=== PATIENT | female | born 1980 | race Caucasian/White ===

== ENCOUNTER → 2016-12-12 | Outpatient (CLI) | payer OTHER ==
--- NOTE | 2016-12-12 20:56 | REP ---
Clinical: Plantar fasciitis Technique: AP, lateral, bilateral oblique views left foot . Findings: The osseous structures and joint spaces are intact and normal. There is no evidence for acute fracture or dislocation. Surrounding soft tissues are unremarkable. No subcutaneous emphysema or radiodense foreign body. Specifically, the plantar soft tissues appear normal. Impression: Normal left foot radiographs . No acute fracture or dislocation. Signed by Anton Pascal MD 12/12/2016 08:48 P
== END ==
LOC: M LRY 10:52
PROVIDERS: ATTEND Family Medicine
DX: M72.2 Plantar fascial fibromatosis (principal)
CPT/HCPCS: 73630; G0463

== ENCOUNTER → 2018-09-07 | Outpatient (REF) | payer OTHER | LOC: M SFHCLERA 17:41 | PROVIDERS: ATTEND Physician Assistant | DX: N39.0 Urinary tract infection, site not specified (principal) ==

== ENCOUNTER → 2019-02-11 | Outpatient (REF) | payer OTHER ==
[2019-02-11 20:30] LABS: BLOOD UREA NITROGEN 9 MG/DL (7-18); CALCIUM LEVEL 9.6 MG/DL (8.5-10.1); CARBON DIOXIDE LEVEL 28 MEQ/L (21-32); CHLORIDE LEVEL 107 MEQ/L (98-107); CREATININE FOR GFR 0.68 MG/DL (0.55-1.30); GLOMERULAR FILTRATION RATE > 60.0 (>60); GLUCOSE, FASTING 86 MG/DL (70-100); POTASSIUM SERUM 4.1 MEQ/L (3.5-5.1); SODIUM LEVEL 140 MEQ/L (136-145)
[2019-02-11 20:40] LABS: CHOLESTEROL RISK RATIO 2.452 (<5); THYROID STIMULATING HORMONE 1.33 uIU/ML (0.358-3.740)
[2019-02-11 20:52] LABS: HEMOGLOBIN A1c 5.4 %
== END ==
LOC: M SFHCLERA 15:18
PROVIDERS: ATTEND Family Medicine
DX: E66.9 Obesity, unspecified (principal)
CPT/HCPCS: 80048; 80061; 83036; 84443; 90471; 90682; G0463

== ENCOUNTER 2019-07-15 00:55 | Emergency (ER) | payer OTHER ==
[~2019-07-15] VITALS: Ht 177.8 cm; Wt 103.4 kg
[2019-07-15] MEDS ORDERED: SERT-138 PO (01:30)
[2019-07-15] MEDS ORDERED: GIAN1TAB PO (01:30)
[2019-07-15] MEDS ORDERED: ACETAMINOPHEN 325 MG TAB PO ONE (01:45)
[2019-07-15 01:59] LABS: HEMATOCRIT 39.4 % (36.0-47.0); HEMOGLOBIN 13.6 g/dl (12.0-15.5); MEAN CORPUSCULAR HGB CONC 34.5 g/dl (32.0-36.5); MEAN CORPUSCULAR VOLUME 86.8 fl (80.0-96.0); PLATELET COUNT, AUTOMATED 135 10^3/uL (150-450); RED BLOOD COUNT 4.54 10^6/uL (4.00-5.40); WHITE BLOOD COUNT 6.3 10^3/uL (4.0-10.0)
[2019-07-15] MEDS ORDERED: FISH1000 PO (02:01)
[2019-07-15 02:23] LABS: ATYPICAL LYMPH 7 % (0-5); BASOPHILS 1 % (0-1); EOSINOPHILS 1 % (0-3); LYMPHOCYTES 22 % (16-44); MONOCYTES 3 % (0-5); NEUTROPHILS 65 % (28-66); PLATELET CLUMPS SMALL AMT; PLATELET ESTIMATE NORMAL (NORMAL)
[2019-07-15 02:25] LABS: ERYTHROCYTE SEDIMENTATION RATE 8 mm/hr (0-20)
[2019-07-15 02:28] LABS: ALBUMIN 3.4 GM/DL (3.2-5.2); ALT/SGPT 42 U/L (12-78); BILIRUBIN,DIRECT 0.2 MG/DL (0.0-0.2); BILIRUBIN,TOTAL 0.3 MG/DL (0.2-1.0); BLOOD UREA NITROGEN 8 MG/DL (7-18); C REACTIVE PROTEIN QUANTITATIV 1.54 MG/DL (0.00-0.30); CALCIUM LEVEL 8.3 MG/DL (8.5-10.1); CARBON DIOXIDE LEVEL 24 mmol/L (20-29); CHLORIDE LEVEL 110 MEQ/L (98-107); GLOMERULAR FILTRATION RATE > 60.0 (>60); GLUCOSE, FASTING 109 MG/DL (70-100); POTASSIUM SERUM 3.4 MEQ/L (3.5-5.1); SODIUM LEVEL 140 MEQ/L (136-145); TOTAL PROTEIN 6.6 GM/DL (6.4-8.2)
[2019-07-15 02:42] LABS: MONO SCRN NEGATIVE (NEGATIVE)
[2019-07-15 04:45] VITALS: BP 132/78
[2019-07-15] MEDS ORDERED: IBUP-1022 PO (04:48)
[2019-07-16 11:44] LABS: HEPATITIS A ANTIBODY IGM NEGATIVE (NEGATIVE); HEPATITIS B CORE ANTIBODY IGM NEGATIVE (NEGATIVE); HEPATITIS B SURFACE ANTIGEN NEGATIVE (NEGATIVE); HEPATITIS C VIRUS ABY INDEX 0.1 INDEX (<0.8)
== END 2019-07-15 05:01 | disposition home or self-care (01) ==
LOC: M ED 00:55
DX: M13.80 Other specified arthritis, unspecified site (principal); F41.1 Generalized anxiety disorder; Z79.899 Other long term (current) drug therapy

== ENCOUNTER → 2020-12-14 | Outpatient (REF) | payer OTHER ==
[~2020-12-14] MED LIST: FISH1000 PO; GIAN1TAB PO; IBUP-1022 PO; SERT-138 PO
== END ==
LOC: M SFHCLERA 18:30
PROVIDERS: ATTEND Nurse Practitioner Family
DX: J40 Bronchitis, not specified as acute or chronic (principal)
CPT/HCPCS: 87798; G0463

== ENCOUNTER → 2021-02-10 | Outpatient (REF) | payer OTHER | LOC: M LAB REF 20:10 | PROVIDERS: ATTEND Physician Assistant | DX: R05.9 Cough, unspecified (principal) ==

== ENCOUNTER → 2022-06-28 | Outpatient (CLI) | payer OTHER ==
[2022-06-28 11:31] LABS: HEPATITIS B SURFACE ANTIGEN NEGATIVE (NEGATIVE)
[2022-06-28 11:43] LABS: HIV 1&2 SCREEN CENTAUR NEGATIVE (NEGATIVE)
[2022-06-28 11:52] LABS: HEPATITIS B CORE ANTIBODY IGM NEGATIVE (NEGATIVE); HEPATITIS C VIRUS ABY INDEX < 0.0 INDEX (<0.8)
[2022-06-29 06:17] LABS: HSV TYPE II IgG SPECIFIC <0.91 index (0.00-0.90)
== END ==
LOC: M PLALAB 08:58
PROVIDERS: ATTEND Family Medicine
DX: Z11.3 Encounter for screening for infections with a predominantly sexual mode of transmission (principal)

== ENCOUNTER → 2022-07-05 | Outpatient (CLI) | payer OTHER ==
[~2022-07-05] MED LIST changes: +PROHANCE 279.3MG/ML 15ML VIAL As Ordered ONE; +PROHANCE 279.3MG/ML 5ML VIAL As Ordered ONE
== END ==
LOC: M RAD 08:10
PROVIDERS: ATTEND Nurse Practitioner Adult Health
DX: R20.8 Other disturbances of skin sensation (principal)
CPT/HCPCS: 36415; 70553; 82533; 82670; 82679; 83001; 83002; 84144; 84270; 84402; 84403; A9576

== ENCOUNTER → 2022-07-05 | Outpatient (CLI) | payer OTHER ==
[~2022-07-05] MED LIST changes: -PROHANCE 279.3MG/ML 15ML VIAL As Ordered ONE; -PROHANCE 279.3MG/ML 5ML VIAL As Ordered ONE
[2022-07-05 19:17] LABS: CORTISOL BASELINE 5.3 UG/DL (4.3-22.4)
[2022-07-05 19:21] LABS: FOLLICLE STIMULATING HORMONE 3.1 mIU/ML
[2022-07-05 19:22] LABS: ESTRADIOL 83.6 PG/ML; LUTEINIZING HORMONE 1.6 mIU/ML; PROGESTERONE 6.32 NG/ML
== END ==
LOC: M PLALAB 14:53
PROVIDERS: ATTEND Obstetrics & Gynecology
DX: N95.1 Menopausal and female climacteric states (principal)

== ENCOUNTER → 2022-07-20 | Outpatient (CLI) | payer OTHER ==
[2022-07-20 15:57] LABS: FERRITIN 22.4 NG/ML (7.3-270.7); FOLATE 12.2 NG/ML (>5.4)
[2022-07-20 15:59] LABS: PERCENT SATURATION 33.9 % (13.2-45.0)
[2022-07-24 21:09] LABS: ANTINUCLEAR ANTIBODIES DIRECT Negative (Negative); CERULOPLASMIN 27.8 mg/dL (19.0-39.0); COPPER PLASMA 128 ug/dL (80-158); TRANSFERRIN 322 mg/dL (192-364); VITAMIN B1 LEVEL WHOLE BLOOD 129.1 nmol/L (66.5-200.0); VITAMIN B6,PYRIDOXAL PHOSPHATE 5.6 ug/L (3.4-65.2); VITAMIN E(ALPHA TOCOPHEROL) 9.5 mg/L (7.0-25.1); VITAMIN E(GAMMA TOCOPHEROL) 1.7 mg/L (0.5-5.5)
== END ==
LOC: M PLALAB 11:15
PROVIDERS: ATTEND Psychiatry & Neurology Neurology
DX: G25.81 Restless legs syndrome (principal); E61.1 Iron deficiency; G62.9 Polyneuropathy, unspecified

== ENCOUNTER → 2024-03-31 | Outpatient (CLI) | payer OTHER | LOC: M PLAIMG 14:26 | PROVIDERS: ATTEND Psychiatry & Neurology Clinical Neurophysiology | DX: R20.2 Paresthesia of skin (principal) ==

== ENCOUNTER → 2024-07-31 | Outpatient (REF) | payer OTHER | LOC: M LAB REF 12:08 | PROVIDERS: ATTEND Student in an Organized Health Care Education/Training Program | DX: R30.0 Dysuria (principal) ==

== ENCOUNTER → 2024-11-21 | Outpatient (CLI) | payer OTHER | LOC: M WUC 10:11 | PROVIDERS: ATTEND Nurse Practitioner Adult Health | DX: S92.512A Displaced fracture of proximal phalanx of left lesser toe(s), initial encounter for closed fracture (principal); Y93.9 Activity, unspecified; Y92.9 Unspecified place or not applicable ==

== ENCOUNTER → 2024-12-05 | Outpatient (CLI) | payer OTHER ==
[~2024-12-05] MED LIST changes: -IBUP-1022 PO; +IBUP600T42 PO
[2024-12-05 12:45] LABS: BASO # 0.1 10^3/uL (0.0-0.2); BASO % 0.8 % (0.0-1.0); EOS # 0.1 10^3/uL (0.0-0.5); EOS % 0.8 % (0.0-3.0); LYMPH # 2.1 10^3/uL (1.5-5.0); LYMPH % 34.7 % (24.0-44.0); MONO # 0.4 10^3/uL (0.0-0.8); MONO % 6.9 % (2.0-8.0); NEUTROPHILS # 3.3 10^3/uL (1.5-8.5); NEUTROPHILS % 56.5 % (36.0-66.0); PLATELET COUNT, AUTOMATED 298 10^3/uL (150-450)
[2024-12-05 12:55] LABS: ALT/SGPT 11 U/L (7.0-40); AST/SGOT 16 U/L (<34); CALCIUM LEVEL 9.6 MG/DL (8.5-10.1); CARBON DIOXIDE LEVEL 30 MMOL/L (20-31); CHLORIDE LEVEL 108 MMOL/L (98-107); CHOLESTEROL LEVEL 165 MG/DL (<200); CHOLESTEROL RISK RATIO 2.83 (<5); CREATININE FOR GFR 0.66 MG/DL (0.55-1.30); GLOMERULAR FILTRATION RATE > 90.0 (>58); LDL CHOLESTEROL 88.0 MG/DL (<100); NON-HDL-C 106.8 MG/DL; POTASSIUM SERUM 4.5 MMOL/L (3.5-5.1); SODIUM LEVEL 146 MMOL/L (136-145); TRIGLYCERIDES LEVEL 94 MG/DL (<150)
[2024-12-05 12:57] LABS: FREE T4 1.17 NG/DL (0.89-1.76)
== END ==
LOC: M WUC 08:05
PROVIDERS: ATTEND Nurse Practitioner Adult Health
DX: F41.1 Generalized anxiety disorder (principal); Z13.220 Encounter for screening for lipoid disorders

== ENCOUNTER → 2024-12-10 | Outpatient (REF) | payer OTHER | LOC: M LAB REF 11:46 | PROVIDERS: ATTEND Physician Assistant | DX: N76.0 Acute vaginitis (principal); R30.0 Dysuria ==

== ENCOUNTER → 2024-12-12 | Outpatient (REF) | payer OTHER ==
[2024-12-12 17:37] LABS: GC DNA AMPLIFICATION NEGATIVE (NEGATIVE)
== END ==
LOC: M LAB REF 15:05
PROVIDERS: ATTEND Nurse Practitioner Adult Health
DX: N89.8 Other specified noninflammatory disorders of vagina (principal); Z11.3 Encounter for screening for infections with a predominantly sexual mode of transmission